=== PATIENT | male | born 1955 | race Caucasian/White ===

== ENCOUNTER 2018-03-15 11:47 | Emergency (ER) | payer OTHER, SELFPAY ==
[2018-03-15 11:50] VITALS: BP 140/87; PULSE 68; RESP 14; TEMP 36.4; O2SAT 99
--- NOTE | 2018-03-15 11:55 | DI.RAD.S_ITS ---
PROCEDURE: XR ABDOMEN 1V INDICATIONS: ? foreign body...dental delia from procedure. TECHNIQUE: One view of the abdomen acquired. COMPARISON: [facility], , ABDOMEN 1 VIEW, 01/26/2013, 3:06. [facility], , ABDOMEN 2 VIEW, 08/06/2008, 5:24. FINDINGS: Surgical changes and devices: None. Bowel: Bowel gas pattern is normal. Soft tissues: No suspicious abdominal calcifications. Visualized solid organ contours appear normal in size. Bones: No suspicious bony lesions. IMPRESSION: No foreign body seen. Dictated by: Chris Mahoney M.D. on 03/15/2018 at 12:42 Approved by: Chris Mahoney M.D. on 03/15/2018 at 12:42
--- NOTE | 2018-03-15 11:55 | DI.RAD.S_ITS ---
PROCEDURE: XR CHEST 1V INDICATIONS: ? foreign body...dental delia from procedure. TECHNIQUE: One view of the chest was acquired. COMPARISON: [facility], CHEST 2 VIEW, 04/05/2016, 10:40. [facility], , CHEST 1 VIEW, 11/04/2007, 13:45. FINDINGS: Surgical changes and devices: None. Lungs and pleura: No pleural effusions or pneumothorax. Lungs are clear. Mediastinum: Mediastinal contours appear normal. Heart size is normal. Bones and chest wall: No suspicious bony lesions. Overlying soft tissues appear unremarkable. IMPRESSION: Normal for age, a foreign body is not seen over the visualized chest and the small portion of the upper abdomen included on this study. Dictated by: Chris Mahoney M.D. on 03/15/2018 at 12:40 Approved by: Chris Mahoney M.D. on 03/15/2018 at 12:42
--- NOTE | 2018-03-15 11:57 | PC.NURSE ---
alert/oriented x 3. No acute distress. Denies abd pain / shortness of breath. Pt w/ easy work of breathing and no complaints.
--- NOTE | 2018-03-15 12:44 | ED.SKABFB ---
HPI - Skin/Abscess/Foreign Bdy <Miriam Swift PA-C - Last Filed: 03/15/18 15:22> General Chief complaint: Skin/Abscess/Foreign Body Stated complaint: at dentist and a delia was possibly ingested Time Seen by Provider: 03/15/18 12:31 Source: patient Mode of arrival: ambulatory Limitations: no limitations History of Present Illness HPI narrative: This 63-year-old gentleman was at the dentist having some work done when a bur popped off of the zavaleta, and dentists was concerned that he could have ingested it. She states that they thought they heard it moved through the tubing, but were unable to find it. Not sure whether it could have fallen on the floor. He states he did not feel like he swallowed anything. He denies any pain in his throat, chest, or abdomen. He has not had cough, and states he is feeling well. Came in because he was advised by dentist to have x-rays. Related Data Allergies Allergy/AdvReac Type Severity Reaction Status Date / Time No Known Drug Allergies Allergy Verified 03/15/18 11:53 Review of Systems <Miriam Swift PA-C - Last Filed: 03/15/18 15:22> Review of Systems ROS Unobtainable: All systems reviewed & are unremarkable except as noted in HPI and below Exam <Miriam Swift PA-C - Last Filed: 03/15/18 15:22> Narrative Exam Narrative: GENERAL APPEARANCE: Patient sitting comfortably, in no distress. NECK: Supple Elia, trachea midline, normal swallow LUNGS: Clear to auscultation bilaterally. HEART: Rate and rhythm regular without murmur, normal S1 and S2, no S3 or S4. ABDOMEN: Soft, nontender, nondistended, +bowel sounds x4 quadrants Initial Vital Signs Initial Vital Signs: Vital Signs Temperature 97.6 F 03/15/18 11:50 Pulse Rate 68 03/15/18 11:50 Respiratory Rate 14 03/15/18 11:50 Blood Pressure 140/87 03/15/18 11:50 Pulse Oximetry 99 03/15/18 11:50 <Soraya Portillo MD - Last Filed: 03/15/18 17:22> Initial Vital Signs Initial Vital Signs: Vital Signs Temperature 97.6 F 03/15/18 11:50 Pulse Rate 68 03/15/18 11:50 Respiratory Rate 14 03/15/18 11:50 Blood Pressure 140/87 03/15/18 11:50 Pulse Oximetry 99 03/15/18 11:50 Course <Miriam Swift PA-C - Last Filed: 03/15/18 15:22> Orders Ordered: ED Orders 03/15/18 11:55 XR abdomen 1V Stat XR chest 1V Stat Vital Signs - 8 hr 03/15/18 11:50 Temperature 97.6 F Pulse Rate 68 Respiratory Rate 14 Blood Pressure 140/87 Pulse Oximetry 99 <Soraya Portillo MD - Last Filed: 03/15/18 17:22> Orders Ordered: ED Orders 03/15/18 11:55 XR abdomen 1V Stat XR chest 1V Stat Vital Signs - 8 hr 03/15/18 11:50 Temperature 97.6 F Pulse Rate 68 Respiratory Rate 14 Blood Pressure 140/87 Pulse Oximetry 99 MDM - Skin/Abscess/Foreign Bdy <Miriam Swift PA-C - Last Filed: 03/15/18 15:22> Imaging Data Chest x-ray: Radiologist's impression: 11 Miriam Swift PA-C Find Patient Imaging ACTIVITY DATE EXAM STATUS AUTHOR 03/15/18 11:55 Signed Chris Mahoney ~ 03/15/18 11:55 Signed Chris Mahoney ~ [address] [address] XRay Report Signed Patient: Nestor Gibson CMR#: [id number] : 4Acct:[id number] Age/Sex: 63 / MDate of Service: 03/15/18 Loc: ED Accession Number: [id number] Procedure: XR chest 1V Ordering Provider: Soraya Portillo MD PROCEDURE: XR CHEST 1V INDICATIONS: ? foreign body...dental delia from procedure. TECHNIQUE: One view of the chest was acquired. COMPARISON: [facility], CHEST 2 VIEW, 04/05/2016, 10:40. [facility], CHEST 1 VIEW, 11/04/2007, 13:45. FINDINGS: Surgical changes and devices: None. Lungs and pleura: No pleural effusions or pneumothorax. Lungs are clear. Mediastinum: Mediastinal contours appear normal. Heart size is normal. Bones and chest wall: No suspicious bony lesions. Overlying soft tissues appear unremarkable. IMPRESSION: Normal for age, a foreign body is not seen over the visualized chest and the small portion of the upper abdomen included on this study. Dictated by: Chris Mahoney M.D. on 03/15/2018 at 12:40 Approved by: Chris Mahoney M.D. on 03/15/2018 at 12:42 Abdominal x-ray: Radiologist's impression: [address] [address] XRay Report Signed Patient: Nestor Gibson CMR#: [id number] : 4Acct:[id number] Age/Sex: 63 / MDate of Service: 03/15/18 Loc: ED Accession Number: [id number] Procedure: XR abdomen 1V Ordering Provider: Soraya Portillo MD PROCEDURE: XR ABDOMEN 1V INDICATIONS: ? foreign body...dental delia from procedure. TECHNIQUE: One view of the abdomen acquired. COMPARISON: [facility], , ABDOMEN 1 VIEW, 01/26/2013, 3:06. [facility], , ABDOMEN 2 VIEW, 08/06/2008, 5:24. FINDINGS: Surgical changes and devices: None. Bowel: Bowel gas pattern is normal. Soft tissues: No suspicious abdominal calcifications. Visualized solid organ contours appear normal in size. Bones: No suspicious bony lesions. IMPRESSION: No foreign body seen. Dictated by: Chris Mahoney M.D. on 03/15/2018 at 12:42 Approved by: Chris Mahoney M.D. on 03/15/2018 at 12:42 Discharge Plan Departure Patient Disposition: Home Clinical Impression: History of recent dental procedure Discharge Date/Time: 03/15/18 13:10 Interventions: ED Discharge Assessment Last Done: 03/15/18 13:10 Activity Restrictions/Additional Instructions: There was no foreign body or delia visualized on your xrays today. Since you are feeling well, you can return home. As we talked about, please return if you start to have any pain in your chest or abdomen, difficulty swallowing or breathing or other new symptoms that concern you. From what you described to me, this object was partly metallic and would typically appear on an x-ray, but we do want to to monitor closely for any new problems in the next day or two. Referrals: Verónica Moore DDS [Other] Jose Ramon Lino MD [Primary Care Provider] -
--- NOTE | 2018-03-15 12:48 | ED_ITS ---
HPI - Skin/Abscess/Foreign Bdy <Miriam Swift PA-C - Last Filed: 03/15/18 15:22> General Chief complaint: Skin/Abscess/Foreign Body Stated complaint: at dentist and a delia was possibly ingested Time Seen by Provider: 03/15/18 12:31 Source: patient Mode of arrival: ambulatory Limitations: no limitations History of Present Illness HPI narrative: This 63-year-old gentleman was at the dentist having some work done when a bur popped off of the zavaleta, and dentists was concerned that he could have ingested it. She states that they thought they heard it moved through the tubing, but were unable to find it. Not sure whether it could have fallen on the floor. He states he did not feel like he swallowed anything. He denies any pain in his throat, chest, or abdomen. He has not had cough, and states he is feeling well. Came in because he was advised by dentist to have x- rays. Related Data Allergies Allergy/AdvReac Type Severity Reaction Status Date / Time No Known Drug Allergies Allergy Verified 03/15/18 11:53 Review of Systems <Miriam Swift PA-C - Last Filed: 03/15/18 15:22> Review of Systems ROS Unobtainable: All systems reviewed & are unremarkable except as noted in HPI and below Exam <iMriam Swift PA-C - Last Filed: 03/15/18 15:22> Narrative Exam Narrative: GENERAL APPEARANCE: Patient sitting comfortably, in no distress. NECK: Supple Elia, trachea midline, normal swallow LUNGS: Clear to auscultation bilaterally. HEART: Rate and rhythm regular without murmur, normal S1 and S2, no S3 or S4. ABDOMEN: Soft, nontender, nondistended, +bowel sounds x4 quadrants Initial Vital Signs Initial Vital Signs: Vital Signs Temperature 97.6 F 03/15/18 11:50 Pulse Rate 68 03/15/18 11:50 Respiratory Rate 14 03/15/18 11:50 Blood Pressure 140/87 03/15/18 11:50 Pulse Oximetry 99 03/15/18 11:50 <Soraya Portillo MD - Last Filed: 03/15/18 17:22> Initial Vital Signs Initial Vital Signs: Vital Signs Temperature 97.6 F 03/15/18 11:50 Pulse Rate 68 03/15/18 11:50 Respiratory Rate 14 03/15/18 11:50 Blood Pressure 140/87 03/15/18 11:50 Pulse Oximetry 99 03/15/18 11:50 Course <Miriam Swift PA-C - Last Filed: 03/15/18 15:22> Orders Ordered: ED Orders 03/15/18 11:55 XR abdomen 1V Stat XR chest 1V Stat Vital Signs - 8 hr 03/15/18 11:50 Temperature 97.6 F Pulse Rate 68 Respiratory Rate 14 Blood Pressure 140/87 Pulse Oximetry 99 <Soraya Portillo MD - Last Filed: 03/15/18 17:22> Orders Ordered: ED Orders 03/15/18 11:55 XR abdomen 1V Stat XR chest 1V Stat Vital Signs - 8 hr 03/15/18 11:50 Temperature 97.6 F Pulse Rate 68 Respiratory Rate 14 Blood Pressure 140/87 Pulse Oximetry 99 MDM - Skin/Abscess/Foreign Bdy <Miriam Swift PA-C - Last Filed: 03/15/18 15:22> Imaging Data Chest x-ray: Radiologist's impression: 11 Miriam Swift PA-C Find Patient Imaging ACTIVITY DATE EXAM STATUS AUTHOR 03/15/18 11:55 Signed Chris Mahoney ~ 03/15/18 11:55 Signed Chris Mahoney ~ [address] [address] XRay Report Signed Patient: Nestor Gibson CMR#: [id number] : 4Acct:[id number] Age/Sex: 63 / MDate of Service: 03/15/18 Loc: ED Accession Number: [id number] Procedure: XR chest 1V Ordering Provider: Soraya Portillo MD PROCEDURE: XR CHEST 1V INDICATIONS: ? foreign body...dental delia from procedure. TECHNIQUE: One view of the chest was acquired. COMPARISON: [facility], CHEST 2 VIEW, 04/05/2016, 10:40. [facility], CHEST 1 VIEW, 11/04/2007, 13:45. FINDINGS: Surgical changes and devices: None. Lungs and pleura: No pleural effusions or pneumothorax. Lungs are clear. Mediastinum: Mediastinal contours appear normal. Heart size is normal. Bones and chest wall: No suspicious bony lesions. Overlying soft tissues appear unremarkable. IMPRESSION: Normal for age, a foreign body is not seen over the visualized chest and the small portion of the upper abdomen included on this study. Dictated by: Chris Mahoney M.D. on 03/15/2018 at 12:40 Approved by: Chris Mahoney M.D. on 03/15/2018 at 12:42 Abdominal x-ray: Radiologist's impression: [address] [address] XRay Report Signed Patient: Nestor Gibson CMR#: [id number] : 4Acct:[id number] Age/Sex: 63 / MDate of Service: 03/15/18 Loc: ED Accession Number: [id number] Procedure: XR abdomen 1V Ordering Provider: Soraya Portillo MD PROCEDURE: XR ABDOMEN 1V INDICATIONS: ? foreign body...dental delia from procedure. TECHNIQUE: One view of the abdomen acquired. COMPARISON: [facility], , ABDOMEN 1 VIEW, 01/26/2013, 3:06. [facility], , ABDOMEN 2 VIEW, 08/06/2008, 5:24. FINDINGS: Surgical changes and devices: None. Bowel: Bowel gas pattern is normal. Soft tissues: No suspicious abdominal calcifications. Visualized solid organ contours appear normal in size. Bones: No suspicious bony lesions. IMPRESSION: No foreign body seen. Dictated by: Chris Mahoney M.D. on 03/15/2018 at 12:42 Approved by: Chris Mahoney M.D. on 03/15/2018 at 12:42 Discharge Plan Departure Patient Disposition: Home Clinical Impression: History of recent dental procedure Discharge Date/Time: 03/15/18 13:10 Interventions: ED Discharge Assessment Last Done: 03/15/18 13:10 Activity Restrictions/Additional Instructions: There was no foreign body or delia visualized on your xrays today. Since you are feeling well, you can return home. As we talked about, please return if you start to have any pain in your chest or abdomen, difficulty swallowing or breathing or other new symptoms that concern you. From what you described to me , this object was partly metallic and would typically appear on an x-ray, but we do want to to monitor closely for any new problems in the next day or two. Referrals: Verónica Moore DDS [Other] Jose Ramon Lino MD [Primary Care Provider] -
== END 2018-03-15 13:10 | disposition home or self-care (01) ==
PROVIDERS: Emergency Provider Internal Medicine; PCP Family Medicine
DX: Z98.890 Other specified postprocedural states (principal)
CPT/HCPCS: 71045; 74018; 99282; 99283

== ENCOUNTER → 2019-11-07 08:43 | Outpatient (CLI) | payer MEDICARE, OTHER, SELFPAY ==
--- NOTE | 2019-11-07 | DI.RAD.S_ITS ---
PROCEDURE: XR CHEST 2V INDICATIONS: Dyspnea, unspecified TECHNIQUE: 2 views of the chest were acquired. COMPARISON: [facility], [facility], XR CHEST 1V, 03/15/2018, 12:01. [facility], [facility], CHEST 2 VIEW, 04/05/2016, 10:40. FINDINGS: Surgical changes and devices: None. Lungs and pleura: Lungs are clear. No pleural effusions or pneumothorax. Mediastinum: Mediastinal contours are normal. Heart size is normal. Bones and chest wall: No suspicious bony abnormalities. Soft tissues appear unremarkable. IMPRESSION: Normal for age, source of current dyspnea symptoms is not seen. Dictated by: Chris Mahoney M.D. on 11/07/2019 at 10:28 Approved by: Chris Mahoney M.D. on 11/07/2019 at 10:28
== END ==
PROVIDERS: PCP Family Medicine; Referring Provider Family Medicine; Visit Provider Family Medicine
DX: R06.00 Dyspnea, unspecified (principal)
CPT/HCPCS: 71046

== ENCOUNTER → 2020-11-04 19:30 | Outpatient (ROUT) | payer MEDICARE, OTHER, SELFPAY | PROVIDERS: Visit Provider Dermatology | DX: L08.89 Other specified local infections of the skin and subcutaneous tissue (principal) | CPT/HCPCS: 87070; 87075; 87077; 87147; 87205 ==

== ENCOUNTER → 2021-04-15 11:10 | Outpatient (CLI) | payer MEDICARE, OTHER, SELFPAY ==
--- NOTE | 2021-04-15 | DI.RAD.S_ITS ---
PROCEDURE: XR LUMBAR SPINE 2-3V INDICATIONS: Other spondylosis, lumbar region TECHNIQUE: 3 views of the lumbar spine were acquired. COMPARISON: [facility], , -SPINE 2-3 VIEWS, 02/24/2009, 12:42. FINDINGS: Bones: 5 [id number] vertebrae are present. Multilevel anterior osteophytes are present. There is facet arthrosis in the lower lumbar spine. There is normal bony alignment. No vertebral body compression fractures. No suspicious bony lesions. Soft tissues: Overlying bowel gas pattern is normal. No suspicious soft tissue calcifications. IMPRESSION: 1. Mild multilevel degenerative changes. 2. 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 3. No acute abnormality of the lumbar spine. Dictated by: Reyes Franks M.D. on 04/15/2021 at 11:28 Approved by: Reyes Franks M.D. on 04/15/2021 at 11:41
== END ==
PROVIDERS: PCP Family Medicine; Referring Provider Family Medicine; Visit Provider Family Medicine
DX: M47.896 Other spondylosis, lumbar region (principal)
CPT/HCPCS: 72100

== ENCOUNTER 2021-05-27 14:22 | Emergency (ER) | payer MEDICARE, OTHER, SELFPAY ==
[2021-05-27 14:25] VITALS: BP 165/99; PULSE 80; RESP 18; TEMP 37; O2SAT 98; BMI 25.8
--- NOTE | 2021-05-27 14:50 | ED_ITS ---
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 Patient is a patient of Dr. Morris, states the soonest appointment he was able to make yesterday was this coming Tuesday, today is Tuesday. Patient states that he usually takes prednisolone acetate 1% for drops q.2 hours q.i.d. when he develops this and it will get rid of his eye redness and irritation within 12 hours. Patient denies any foreign body sensation, he denies any visual changes, he denies any abnormal discharge coming from his eye. He denies any headache, current illness, fever, or any other changes. Related Data Allergies Allergy/AdvReac Type Severity Reaction Status Date / Time No Known Drug Allergies Allergy Verified 05/27/21 14:31 Review of Systems <BRADLY Tran - Last Filed: 05/27/21 15:13> Review of Systems Narrative: General: denies fever, chills Head/Neck: denies headache, neck pain Eyes: denies visual changes, Endorses left eye tenderness, red sclera Cardio: denies chest pain, palpitations MSK: denies joint pain, muscle weakness Skin: denies rash, itching Neuro: denies numbness, tingling Patient History <BRADLY Tran - Last Filed: 05/27/21 15:13> Medical History Ulcerative colitis Surgical History H/O colectomy Family History Other Family history non-contributory Social History Smoking Status: Never smoker Smoking Status: Never smoker alcohol intake frequency: 0-2 drinks per day Substance Use Type: does not use Exam <BRADLY Tran - Last Filed: 05/27/21 15:13> Narrative Exam Narrative: Independently reviewed vitals signs and nursing notes. General: cooperative, comfortable, in no acute distress, well developed and well groomed Head: atraumatic, symmetrical facial expressions Neck: supple, atraumatic, without lymphadenopathy. Eyes: pupils equal round and reactive, left scleral injection, EOM intact bilaterally, fluorescein exam without any corneal abrasion, no vision changes on visual acuity, vision equal bilaterally, patient is not a contact lens wearer, no eye discharge. Nose: nares patent, no rhinorrhea Mouth/Throat: uvula midline, moist mucus membranes Cardiovascular: regular rate and rhythm, no peripheral edema, warm extremities Skin: brisk capillary refill, no rash, no erythema Neuro: normal speech and cognition, A&O x3, normal tone Psych: mental status is grossly normal, congruent mood, normal affect, pleasant and cooperative Initial Vital Signs Initial Vital Signs: Vital Signs Temperature 98.6 F 05/27/21 14:25 Pulse Rate 80 05/27/21 14:25 Respiratory Rate 18 05/27/21 14:25 Blood Pressure 165/99 H 05/27/21 14:25 Pulse Oximetry 98 05/27/21 14:25 <Rosa Armstrong DO - Last Filed: 05/28/21 07:00> Initial Vital Signs Initial Vital Signs: Vital Signs Temperature 98.6 F 05/27/21 14:25 Pulse Rate 80 05/27/21 14:25 Respiratory Rate 18 05/27/21 14:25 Blood Pressure 165/99 H 05/27/21 14:25 Pulse Oximetry 98 05/27/21 14:25 Course <BRADLY Tran - Last Filed: 05/27/21 15:13> Orders Ordered: Discontinued Medications Fluorescein Sodium (Fluorescein 1 Mg Strip) 1 mg EYE-LEFT NOW ONE Stop: 05/27/21 14:43 Last Admin: 05/27/21 15:17 Dose: 1 mg Documented by: BTONER Proparacaine HCl (Proparacaine 0.5% Ophth Ryanne) 1 drops EYE-LEFT NOW ONE Stop: 05/27/21 14:43 Last Admin: 05/27/21 14:57 Dose: 1 1000units Documented by: [email or web address] Vital Signs Vital signs: Vital Signs - 8 hr 05/27/21 14:25 Temperature 98.6 F Pulse Rate 80 Respiratory Rate 18 Blood Pressure 165/99 H Pulse Oximetry 98 <Rosa Armstrong DO - Last Filed: 05/28/21 07:00> Orders Ordered: Discontinued Medications Fluorescein Sodium (Fluorescein 1 Mg Strip) 1 mg EYE-LEFT NOW ONE Stop: 05/27/21 14:43 Last Admin: 05/27/21 15:17 Dose: 1 mg Documented by: SRIDHAR Proparacaine HCl (Proparacaine 0.5% Ophth Ryanne) 1 drops EYE-LEFT NOW ONE Stop: 05/27/21 14:43 Last Admin: 05/27/21 14:57 Dose: 1 1000units Documented by: JUNA FOTERudy Vital Signs Vital signs: Vital Signs - 8 hr 05/27/21 14:25 Temperature 98.6 F Pulse Rate 80 Respiratory Rate 18 Blood Pressure 165/99 H Pulse Oximetry 98 MDM - Eye Problem <BRADLY Tran - Last Filed: 05/27/21 15:13> [facility] Narrative Medical decision making narrative: This is a 66-year-old male who presents to the emergency department complaining of left eye redness and tenderness to palpation since yesterday. Patient states he has a history of uveitis due to an autoimmune condition, he states that he has required steroid eye drops at least 10 times in his life. He denies any known foreign body injury, denies any vision changes, denies any abnormal discharge. No corneal abrasions visualized on fluorescein exam, patient was given a prescription of prednisone acetate 1% ophthalmic drops to use Q 2 hours q.i.d. for 1 day. He has a upcoming Ophthalmology appointment with Dr. Morris this coming Tuesday, in 2 days. patient states that he will follow-up with Dr. Morris then. Patient has a left scleral injection without any abnormal discharge. This is most consistent with uveitis, Patient is appropriate and amenable to discharge home. Vital signs are stable on repeat examination is unremarkable. Patient has been informed of results. Patient has been given strict return to ER precautions for any new or worsening symptoms. Patient understands to follow up closely with outpatient providers as instructed. Patient understands plan and agrees to discharge home. All questions and concerns answered at this time. Discharge Plan Departure Patient Disposition: Home Clinical Impression: Uveitis of left eye Instructions: Posterior Uveitis Activity Restrictions/Additional Instructions: *You have been diagnosed with Most likely uveitis, no corneal abrasion was visible. please follow-up at your regularly scheduled appointment with Dr. Morris for complete exam. Please go to get more, get your eye drops, and return to the emergency department for any changes to your vision, worsening pain, any vision changes, or any concern that this may be getting worse. Thank you for trusting us with your care. *What to do: *Please continue to take your regular medications as directed. [ x] New medication prescriptions sent to your pharmacy: [ [place]] [ ] New medication written as a paper prescription [ ] No new medications given *Please follow up with your primary care provider in 2-3 days, call for an appointment. Let them know you were seen in the Emergency Department and that we asked that you be seen for follow-up. We will electronically transmit a record of today's note if your PCP is in our system *If you do not have a primary care provider please contact [phone] to establish care with one of [facility] primary care providers. *Return to Emergency Department if you should have any new, worsening or concerning symptoms, such as [fever greater than 101F, chills, worsening pain, persistent vomiting or other bothersome symptoms] Referrals: Bea Morris MD [Physician] - Mingo Espinoza MD [Primary Care Provider] - <Rosa Armstrong DO - Last Filed: 05/28/21 07:00> Cosign ED Attending Cosnydiaature Attestation: I was immediately available in the department for consultation. Documentation has been reviewed. I agree with assessment and plan.
[2021-05-27] MEDS: PROPARACAINE 0.5% OPHTH SOL 1 DROPS EYE-LEFT (14:57)
[2021-05-27] MEDS: FLUORESCEIN 1 MG STRIP EYE-LEFT (15:17)
== END 2021-05-27 15:20 | disposition home or self-care (01) ==
PROVIDERS: Emergency Provider Nurse Practitioner Critical Care Medicine; PCP Family Medicine
DX: H30.92 Unspecified chorioretinal inflammation, left eye (principal)
CPT/HCPCS: 99282

== ENCOUNTER → 2022-05-12 12:51 | Outpatient (ROUT) | payer MEDICARE, OTHER, SELFPAY ==
[2022-05-12 13:39] LABS: Influenza A - CEPHEID Flu A NEGATIVE (NEGATIVE); Influenza B - CEPHEID Flu B NEGATIVE (NEGATIVE); Respiratory Syncytial Virus Negative (Negative)
[2022-05-12 13:51] LABS: COVID-19 CEPHEID 4-PLEX PCR Negative (Negative)
== END ==
PROVIDERS: PCP Family Medicine; Visit Provider Family Medicine
DX: Z20.822 Contact with and (suspected) exposure to COVID-19 (principal)
CPT/HCPCS: 0241U

== ENCOUNTER → 2022-05-27 10:52 | Outpatient (CLI) | payer MEDICARE, OTHER, SELFPAY ==
--- NOTE | 2022-05-27 | DI.RAD.S_ITS ---
PROCEDURE: XR CHEST 2V INDICATIONS: COUGH / SHORTNESS OF BREATH TECHNIQUE: 2 views of the chest were acquired. COMPARISON: [facility], CR, XR CHEST 2V, 11/07/2019, 8:41. [facility], CR, XR CHEST 1V, 03/15/2018, 12:01. FINDINGS: Surgical changes and devices: None. Lungs and pleura: Lungs are clear. No pleural effusions or pneumothorax. Mediastinum: Mediastinal contours are normal. Heart size is normal. Bones and chest wall: No suspicious bony abnormalities. Soft tissues appear unremarkable. IMPRESSION: No acute cardiopulmonary process. Dictated by: Joe Mirza M.D. on 05/27/2022 at 12:05 Approved by: Joe Mirza M.D. on 05/27/2022 at 12:05
== END ==
PROVIDERS: PCP Family Medicine; Referring Provider Family Medicine; Visit Provider Family Medicine
DX: R05.9 Cough, unspecified (principal); R06.02 Shortness of breath
CPT/HCPCS: 71046

== ENCOUNTER → 2022-12-31 07:14 | Outpatient (CLI) | payer MEDICARE, OTHER, SELFPAY ==
--- NOTE | 2022-12-31 | DI.NM.S_ITS ---
PROCEDURE: NM SARI PERF SPECT REST & STR Rest and exercise myocardial perfusion SPECT with gated imaging and ejection fraction RADIOPHARMACEUTICAL: 26.7 mCi Tc-99m sestamibi IV at rest and 25.9 mCi Tc-99m sestamibi IV at peak exercise. A [id number] was performed. INDICATIONS: Shortness of breath TECHNIQUE: Radiopharmaceutical was injected at peak stress test, and also at rest. SPECT images were obtained. SPECT myocardial perfusion images were displayed in short axis, horizontal long axis, and vertical long axis views. Gated images were reviewed using [employer] software. COMPARISON: None. CARDIAC STRESS: A standard Karl treadmill exercise tolerance test was performed by the patient under the supervision of an attending staff. The patient exercised for 5 minutes and 37 seconds; 6.5 METS; functional aerobic impairment (ROBIN) is +17%. Hemodynamic data: There is normal blood pressure and heart rate response to exercise stress. Patient achieved 96% of maximum predicted heart rate at peak exercise. Maximum blood pressure 172/90. Symptoms: Patient complained of 5 out of 10 chest pain with exercise. EKG: No diagnostic EKG changes of ischemia; no ectopy. FINDINGS: Raw data: There is good myocardial labeling by radiotracer. No significant motion artifacts. Almu-gw-auaeb ratio is 0.28 (normal is less than 0.38 for sestamibi tracer, and less than 0.50 for thallium tracer). Left ventricle function: Gated images demonstrate normal left ventricle wall thickening. No segmental wall motion abnormality. No transient ischemic dilation; TID is 1.05 (normal less than 1.3). The left ventricle resting end-diastolic volume is 75 mL. Left ventricle stress ejection fraction is 64%; normal values are above 45%. Myocardial perfusion: There is normal distribution of activity in the left and right ventricular myocardium. No fixed or reversible perfusion defects. IMPRESSION: Low risk study. No evidence of exercise-induced ischemia on ECG or SPECT imaging. Normal hemodynamic response. Exercise-induced chest discomfort resolved 1 minute 30 seconds into recovery. Reduced exercise capacity. Normal LV size and function. Dictated by: Sandra Kitchen D.O. on 01/03/2023 at 17:55 Approved by: Sandra Kitchen D.O. on 01/03/2023 at 17:58
== END ==
PROVIDERS: PCP Family Medicine; Referring Provider Family Medicine; Visit Provider Family Medicine
DX: R07.9 Chest pain, unspecified (principal); R06.02 Shortness of breath
CPT/HCPCS: 78452; 93017; A9502

== ENCOUNTER → 2024-07-23 11:11 | Outpatient (CLI) | payer MEDICARE, OTHER, SELFPAY ==
--- NOTE | 2024-07-23 11:14 | DI.RAD.S_ITS ---
PROCEDURE: XR LUMBAR SPINE 2-3V INDICATIONS: Low back pain, unspecified TECHNIQUE: 3 views of the lumbar spine were acquired. COMPARISON: [facility], CR, XR LUMBAR SPINE 2-3V, 04/15/2021, 11:01. FINDINGS: Bones: 5 [id number] vertebrae are present. Moderate multilevel disc height loss is present at the L1-L2 through L3-L4 levels with adjacent endplate sclerosis and anterior osteophytosis. There is normal bony alignment. No vertebral body compression fractures. No suspicious bony lesions. Soft tissues: Overlying bowel gas pattern is normal. No suspicious soft tissue calcifications. 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 Dictated by: Tyrone Han M.D. on 07/24/2024 at 3:24 Approved by: Tyrone Han M.D. on 07/24/2024 at 3:35
== END ==
PROVIDERS: PCP Family Medicine; Referring Provider Family Medicine; Visit Provider Family Medicine
DX: M54.50 Low back pain, unspecified (principal); G89.29 Other chronic pain; M89.8X8 Other specified disorders of bone, other site
CPT/HCPCS: 72100

== ENCOUNTER → 2025-02-07 16:37 | Outpatient (ROUT) | payer MEDICARE, OTHER, SELFPAY ==
[2025-02-07 17:20] LABS: Influenza A - CEPHEID Flu A POSITIVE (NEGATIVE); Influenza B - CEPHEID Flu B NEGATIVE (NEGATIVE)
[2025-02-07 17:21] LABS: COVID-19 CEPHEID 4-PLEX PCR Negative (Negative)
== END ==
LOC: LAB 16:37
PROVIDERS: PCP Family Medicine; Visit Provider Family Medicine
DX: R05.1 Acute cough (principal); R06.2 Wheezing
CPT/HCPCS: 87637

== ENCOUNTER 2025-02-14 07:55 | Emergency (ER) | payer MEDICARE, OTHER, SELFPAY ==
[2025-02-14] VITALS (11 sets, daily range): BP systolic 117–173; BP diastolic 76–88; PULSE 65–111; RESP 22; TEMP 36.6; O2SAT 93–97; BMI 26.6
--- NOTE | 2025-02-14 08:53 | DI.RAD.S_ITS ---
PROCEDURE: XR CHEST 1V INDICATIONS: cough TECHNIQUE: One view of the chest was acquired. COMPARISON: [facility], CR, XR CHEST 2V, 05/27/2022, 11:14. [facility], CR, XR CHEST 2V, 11/07/2019, 8:41. FINDINGS: Surgical changes and devices: None. Lungs and pleura: An incomplete inspiratory result is noted, causing a crowded appearance to the lung markings. No focal infiltrates are seen. No pneumothorax or significant pleural effusions are seen. Mediastinum: Mediastinal contours appear normal. Heart size is normal. Bones and chest wall: No suspicious bony lesions. Age-appropriate bony degenerative changes are seen. Overlying soft tissues appear unremarkable. IMPRESSION: Low lung volumes, without an acute abnormality seen by plain film. No focal infiltrates are seen. Dictated by: Abisai Angel M.D. on 02/14/2025 at 8:12 Approved by: Abisai Angel M.D. on 02/14/2025 at 8:12
--- NOTE | 2025-02-14 08:54 | ED.BACK ---
HPI - Back Pain/Injury General Chief Complaint: Back Pain/Injury Stated Complaint: Worsening back pain radiating into knees Time Seen by Provider: 02/14/25 07:58 Source: patient History of Present Illness HPI Narrative: 70-year-old gentleman on no medications presents complaining of left-sided radicular back pain for at least 20 days that has been exacerbated by significant cough. He has had a cough, fevers, myalgias for the last 14 days. Was in [place] returned late last week was seen by his primary care physician and diagnosed with influenza on the . Progressive cough and now becoming somewhat productive, was given a prescription for azithromycin and started that on the , it has made minimal changes. At this point he is coughing so much that he is unable to sleep, has pain throughout his chest and chest wall muscles from the vigor of coughing. No palpitations or exertional dyspnea Regarding his low back pain, he has had chronic left back pain radiating into his buttocks previously. He has been using a total of 8-10 200 mg ibuprofen daily for back pain and flu related myalgias. He is able to walk he is not having weakness or paresthesias. No bowel or bladder complications. He does not have a personal history of cancer, there are no other red flags to indicate low back imaging of the indicated today Related Data Previous Rx's ?Medication ?Instructions ?Recorded benzonatate 200 mg capsule 200 mg PO BID-TID PRN cough #14 02/14/25 caps oxycodone-acetaminophen 5 mg-325 1 tab PO Q6H PRN pain #14 tabs 02/14/25 mg tablet Allergies Allergy/AdvReac Type Severity Reaction Status Date / Time No Known Drug Allergies Allergy Verified 02/14/25 08:28 Review of Systems Review of Systems Narrative: Pertinent positive and negative findings as per HPI Patient History Medical History Obstructive sleep apnea Ulcerative colitis Surgical History H/O colectomy Family History Other Family history non-contributory Social History Smoking Status: Never smoker Smoking Status: Never smoker alcohol intake frequency: 0-2 drinks per day Exam Initial Vital Signs Initial Vital Signs: Vital Signs Pulse Rate 111 H 02/14/25 08:22 Pulse Oximetry 96 02/14/25 08:22 General: Fatigued and pale appearing. Significant cough not significantly productive. He is able to speak in full sentences HEENT: Moist mucous membranes, normal sclera with reactive pupils, Respiratory: Lungs with scattered reason rhonchi in all lung mendosa Cardiac: Mild tachycardia Regular rate and rhythm no murmurs no bruits Abdomen: Soft, nontender, no rebound or guarding, no flank pain Spine: No midline thoracic or lumbar point tenderness. Paraspinous spasm on the left lower lumbar area. He is able to sit and stand without assistance and minimal pain behaviors Skin: Warm and dry, no rashes Neurologic: Grossly neurologically intact with no obvious asymmetries or abnormalities Extremities: No trauma, no lower extremity edema Psych: Cooperative, appropriate insight and affect Course Orders Ordered: ED Orders 02/14/25 08:53 XR chest 1V Stat 02/14/25 09:40 Complete Blood Count AUTO DIFF Stat Comprehensive Metabolic Panel Stat Magnesium Stat NT-proBNP (BNP-Adult 18+) Stat Troponin I Stat Hydromorphone HCl (Hydromorphone Hcl 0.5 Mg/0.5 Ml Syringe) 0.5 mg IV Q15MIN PRN PRN Reason: Pain, Last Admin: 02/14/25 09:50 Dose: 0.5 mg Documented By: KEMAR Discontinued Medications Albuterol/Ipratropium (Albuterol/Ipratropium 3 Ml Ampul) 3 ml INH NOW ONE Stop: 02/14/25 08:53 Last Admin: 02/14/25 09:47 Dose: 3 ml Documented By: PEDRITO Sodium Chloride (Normal Saline 0.9%) 1,000 mls @ 1,000 mls/hr IV BOLUS ONE Stop: 02/14/25 09:51 Last Admin: 02/14/25 09:51 Dose: 1,000 mls/hr Documented By: KEMAR Vital Signs Vital signs: Vital Signs - 8 hr 02/14/25 08:22 02/14/25 08:23 02/14/25 08:23 Temperature Pulse Rate 111 H 102 H Respiratory Rate Blood Pressure 149/88 H Pulse Oximetry 96 97 Oxygen Delivery Method 02/14/25 08:27 02/14/25 08:30 02/14/25 08:30 Temperature 97.8 F Pulse Rate 103 H 71 Respiratory Rate 22 Blood Pressure 149/80 H 132/76 Pulse Oximetry 93 93 Oxygen Delivery Method Room Air 02/14/25 09:00 02/14/25 09:01 02/14/25 09:01 Temperature Pulse Rate 67 66 Respiratory Rate Blood Pressure 151/81 H Pulse Oximetry 95 93 Oxygen Delivery Method MDM - Back Pain/Injury Lab Data 02/14/25 09:40 02/14/25 09:40 Labs: Lab Results 02/14/25 Range/Units 09:40 WBC 4.6 (4.5-11.0) X10^3/uL RBC 5.01 (4.5-5.9) X10^6/uL Hgb 15.6 (13.5-17.5) g/dL Hct 45.3 (41-53) % MCV 90.3 (80-100) fL MCH 31.2 (26-34) PG MCHC 34.5 (30-36) % RDW 13.4 (11.6-14.8) % Plt Count 255 (150-400) X10^3/uL Neut % (Auto) 57.7 (50-75) % Lymph % (Auto) 34.0 (25-40) % [place] % (Auto) 6.8 (3-14) % Eos % (Auto) 0.7 L (2-4) % Baso % (Auto) 0.8 (0-2) % Neut # (Auto) 2700 (4003-2880) /uL Lymph # (Auto) 1600 (5120-9990) /uL [place] # (Auto) 300 (0-900) /uL Eos # (Auto) 0 (0-450) /uL Baso # (Auto) 0 (0-100) /uL Sodium 139 (137-145) mmol/L Potassium 5.0 (3.4-5.1) mmol/L Chloride 108 H (98-107) mmol/L Carbon Dioxide 26 (22-32) mmol/L BUN 21 H (9-20) mg/dL Creatinine 1.05 (0.66-1.25) mg/dL Estimated GFR > 60 (>60) mL/min BUN/Creatinine Ratio 20.0 (6-22) Glucose 102 H (70-99) mg/dL Calcium 9.1 (8.4-10.2) mg/dL Magnesium 2.0 (1.6-2.3) mg/dL Total Bilirubin 1.0 (0.2-1.3) mg/dL AST 56 (17-59) IU/L ALT 72 H (<50) IU/L Alkaline Phosphatase 53 (38-126) U/L Troponin I < 0.012 (0.01-0.034) ng/mL NT-Pro-B Natriuret Pep < 20 (<125) pg/mL Total Protein 7.8 (6.3-8.2) g/dL Albumin 4.2 (3.5-5.0) g/dL Globulin 3.6 (1.7-4.1) g/dL Albumin/Globulin Ratio 1.2 (1.0-2.8) MDM Narrative Medical decision making narrative: CC: Left low back pain Complicating co-morbidities: Diagnosed with influenza, on day 16 of viral symptoms, day 4 of azithromycin symptoms worsening Data collected from: patient, Differential considered: Low back strain, post viral pneumonia, PE (recent flight from [place], tachycardia, persistent cough) Exam documented above, pertinent findings include: Appears fatigued, mild rhonchi and wheeze throughout all lung mendosa. Paraspinous spasm left lower lumbar area Lab Test results independently reviewed as above. Pertinent findings: 02/07 flu A positive CBC is unremarkable Chemistries show appropriate renal function, no significant electrolyte abnormalities, AST is appropriate ALT minimally elevated at 72. Troponin is undetectable ProBNP is not elevated Imaging studies independently reviewed: Chest x-ray shows no acute abnormalities specifically no infiltrate pneumothorax or pleural effusion Treatments: DuoNeb did not influence his wheeze at all Fluid and small dose of Dilaudid helped suppress the cough significantly and significantly helped with the back pain Discussion: 70-year-old gentleman with acute left-sided radicular back pain along with insulins a and a cough that has persisted now for almost a week. Lab work does not suggest secondary bacterial infection, acute coronary syndrome, congestive heart failure. Chest x-ray is reassuring with no evidence of infiltrate or effusion/pneumothorax. Pain medication was quite effective in helping with both the cough and the back pain. Back pain does not have any specific red flags to suggest additional imaging needed at this time. He has no risk factors for epidural infection or diskitis. I suspect he is simply having a post viral cough from his influenza, we will give him a small prescription for Percocet to help with the acute back strain that will continue to be a problem as long as he is coughing as hard as he will, so also help with cough suppression, prescription for Tessalon Perles. When he did see his primary care doctor he was given a prescription for physical therapy to follow up with the back pain I strongly encouraged that he actually do this. There was no signs of sepsis, respiratory distress or impending neurologic compromise and he is safely discharged Discharge Plan Departure Patient Disposition: Home Clinical Impression: Influenza A Cough Qualifiers: Cough type: acute Qualified Code(s): R05.1 - Acute cough Strain of lumbar region Qualifiers: Encounter type: initial encounter Qualified Code(s): S39.012A - Strain of muscle, fascia and tendon of lower back, initial encounter Instructions: DI for Back Strain or Sprain Activity Restrictions/Additional Instructions: Thank you for coming in today Your low back pain is from muscle spasm pinching 1 of the nerves as it comes out your spine which is causing the symptoms into your but and around your thigh. This will improve. Your chronic coughing is going to continue to exacerbate this. I have given you a prescription for Percocet which is Tylenol plus oxycodone. You can take this with ibuprofen for pain control. Oxycodone is a narcotic and will cause constipation please take it with a stool softener. Oxycodone is also a fairly effective cough suppressant. Hopefully this will help you get some sleep which will actually get you to healing. I would recommend you follow up with the physical therapy recommendation from your primary care doctor to help with the back pain Regarding your cough, there was no evidence of secondary pneumonia, reactive airway issue, congestive heart failure, acute coronary syndrome or other findings that would require additional workup or hospitalization today. In addition to the narcotic for the pain control that will help with the cough, I am going to give you a prescription for Tessalon Perles to help suppress the cough. Time will fix this. If you find that you are getting worse or develop any new symptoms, please feel free to return to the emergency department for further evaluation. Prescriptions: New oxycodone-acetaminophen 5-325 mg tablet 1 tab PO Q6H PRN (Reason: pain) Qty: 14 0RF benzonatate 200 mg capsule 200 mg PO BID-TID PRN (Reason: cough) Qty: 14 0RF Referrals: Mingo Espinoza MD [Primary Care Provider, Family Practice] Stand Alone Forms: Patient Portal/API
[2025-02-14] MEDS: ALBUTEROL/IPRATROPIUM 3 ML AMPUL INH (09:47)
[2025-02-14] MEDS: SODIUM CHLORIDE 0.9% 1,000 ML 1000 ML IV (09:51)
[2025-02-14 09:52] LABS: Add Manual Diff / Slide Review NO; Hematocrit 45.3 % (41-53); Hemoglobin 15.6 g/dL (13.5-17.5); Lymphocytes Absolute Auto 1600 /uL (1100-4500); Mean Corpuscular HGB Conc 34.5 % (30-36); Mean Corpuscular Hemoglobin 31.2 PG (26-34); Mean Corpuscular Volume 90.3 fL (80-100); Platelet Count 255 X10^3/uL (150-400)
[2025-02-14 10:03] LABS: Alanine Aminotransferase 72 IU/L (<50); Albumin 4.2 g/dL (3.5-5.0); Albumin Globulin Ratio 1.2 (1.0-2.8); Alkaline Phosphatase 53 U/L (38-126); Blood Urea Nitrogen 21 mg/dL (9-20); Calcium 9.1 mg/dL (8.4-10.2); Carbon Dioxide 26 mmol/L (22-32); Chloride 108 mmol/L (98-107); Estimated Glomerular Filt Rate > 60 mL/min (>60); Globulin 3.6 g/dL (1.7-4.1); Glucose 102 mg/dL (70-99); Magnesium 2.0 mg/dL (1.6-2.3); Sodium 139 mmol/L (137-145); Total Protein 7.8 g/dL (6.3-8.2)
[2025-02-14 10:05] LABS: HEMOLYSIS 81 (0-50)
[2025-02-14 10:06] LABS: Potassium 5.0 mmol/L (3.4-5.1)
[2025-02-14 10:15] LABS: NT-proBNP (BNP-Adult 18+) < 20 pg/mL (<125); Troponin I < 0.012 ng/mL (0.01-0.034)
[2025-02-14] MEDS: BENZONATATE 100 MG CAPSULE PO (11:00)
--- NOTE | 2025-02-14 11:22 | PC.NURSE ---
Pt given D/C paperwork and medication. Educated on D/C. IV removed.
== END 2025-02-14 11:24 | disposition home or self-care (01) ==
PROVIDERS: Emergency Provider Emergency Medicine; PCP Family Medicine
DX: J10.1 Influenza due to other identified influenza virus with other respiratory manifestations (principal); S39.012A Strain of muscle, fascia and tendon of lower back, initial encounter; M79.10 Myalgia, unspecified site; X58.XXXA Exposure to other specified factors, initial encounter
CPT/HCPCS: 36415; 71045; 80053; 83735; 83880; 84484; 85025; 96361; 96374; 99284; J1171; J7030